=== PATIENT | male | born 1985 | race Caucasian/White ===

== ENCOUNTER 2024-10-26 11:57 | Emergency (ER) | payer OTHER ==
[2024-10-26 12:07] VITALS: TEMP 98.1; BMI 24.5
[2024-10-26] MEDS ORDERED: morphine SULFATE 4 MG/ML VIAL ONE (12:18)
[2024-10-26] MEDS: morphine CARPU-JECT 4 MG/1 ML DISP.SYRIN IVPUSH ONE (12:28)
[2024-10-26 12:46] LABS: ABSOLUTE IMMATURE GRANULOCYTES 0.02 x10^3/uL (0.0-0.031); BASOPHILS # 0.03 x10^3/uL (0.01-0.08); EOSINOPHIL % 1.8 % (0.8-7.0); HEMATOCRIT 42.5 % (40.1-51.0); HEMOGLOBIN 14.6 g/dL (13.7-17.5); MCHC 34.4 g/dl (32.3-36.5); MEAN CELL VOLUME 88.9 fl (79.0-92.2); MEAN PLT VOLUME 9.9 fl (9.4-12.4); MONOCYTE # 0.34 x10^3/uL (0.30-0.82); MONOCYTE % 6.3 % (5.3-12.2); PLATELET COUNT 225 x10^3/uL (163-337); RDW 11.1 % (12.0-15.6)
[2024-10-26 12:53] LABS: INR 1.07 (0.83-1.09); PROTHROMBIN TIME (PATIENT) 11.7 SEC (9.7-13.0)
[2024-10-26 12:56] LABS: ACTIVATED PTT 27.7 SECONDS (25.2-36.5)
[2024-10-26 13:22] LABS: POTASSIUM 3.7 mmol/L (3.5-5.1)
[2024-10-26 13:24] LABS: ALBUMIN 4.7 g/dl (3.4-5.0); CALCIUM 9.9 mg/dL (8.5-10.1)
[2024-10-26 13:25] LABS: BLOOD UREA NITROGEN 21.8 mg/dL (7-18)
[2024-10-26 13:28] LABS: CREATININE 1.1 mg/dL (0.55-1.3)
[2024-10-26 13:29] LABS: BILIRUBIN,TOTAL 1.6 mg/dL (0.2-1); TOT PROT 7.3 g/dl (6.4-8.2)
[2024-10-26] MEDS ORDERED: KETOROLAC TROMETHAMINE 15 MG/ML VIAL ONE (13:42)
[2024-10-26] MEDS: KETOROLAC TROMETHAMINE 15 MG/ML VIAL IVPUSH ONE (13:53)
[2024-10-26] MEDS: SODIUM CHLORIDE 0.9% 500 ML INFUS.BAG IV ONE (13:53)
[2024-10-26 15:30] LABS: URINE APPEARANCE CLEAR; URINE BILIRUBIN NEGATIVE (NEGATIVE); URINE COLOR YELLOW; URINE GLUCOSE (UA) NEGATIVE (NEGATIVE); URINE KETONE 1+ (NEGATIVE); URINE LEUK ESTERASE NEGATIVE (NEGATIVE); URINE NITRITE NEGATIVE (NEGATIVE); URINE PROTEIN NEGATIVE (NEGATIVE); URINE UROBILINOGEN 0.2 mg/dL (0.2-1.0)
[2024-10-26 16:47] VITALS: RESP 16
[2024-10-26 18:40] VITALS: BP 115/67; PULSE 61
== END 2024-10-26 18:44 | disposition home or self-care (01) ==
LOC: JER 11:57
PROC: 3E033NZ Introduction of Analgesics, Hypnotics, Sedatives into Peripheral Vein, Percutaneous Approach (ICD-10-PCS; principal; 2024-10-26)
PROC: 3E0333Z Introduction of Anti-inflammatory into Peripheral Vein, Percutaneous Approach (ICD-10-PCS; 2024-10-26)
DX: N50.812 Left testicular pain (principal)
CPT/HCPCS: 36415; 74177-TC; 76870-TC; 80053; 81003; 85025; 85610; 85730; 87086; 99285-25; Q9967